=== PATIENT | female | born 1945 | race Caucasian/White ===

== ENCOUNTER 2016-06-04 08:41 | Emergency (ER) | payer MEDICARE ==
[~2016-06-04] VITALS: Ht 172.7 cm; Wt 72.7 kg
[~2016-06-04 08:41] MED LIST: ASPI81TA3 PO; CHOL200047 PO; GLUC-123 PO; LIP40 PO; NAPR220C11 PO; TURM500C7 PO; UBID300C PO
[2016-06-04 08:44] VITALS: BP 111/75; PULSE 52; RESP 18; O2SAT 98
[2016-06-04 09:16] LABS: BASOPHILS % (AUTO) 0.5 % (0-3); EOSINOPHILS % (AUTO) 1.2 % (0-5); MONOCYTES % (AUTO) 8.4 % (4-12); Mean Corpuscular Hemoglobin 30.2 pg (27.0-35.0); Mean Corpuscular Volume 90.4 fL (81-100); NEUTROPHILS % (AUTO) 66.3 % (40-74); Platelet Count 277 bil/L (150-400)
--- NOTE | 2016-06-04 09:19 | ED.REPORT ---
HPI-General Illness Date of Service Jun 04, 2016 ED Provider: Leif Goncalves MD Patient is a 70 year old female on Pradaxa who presents to the ED complaining of palpitations that awoke her at 0600 this morning. Associated symptoms include headache onset last night and SOB. Upon examination, her SOB has resolved. She denies chest pain, lightheadedness, head trauma, or any other symptoms. She recently had a non-bleeding stroke. She currently has a cold. She took 81 mg of Aspirin at 0730 this morning. She has an appointment with Dr. Underwood in a week or two. Nursing Notes Stated Complaint: ARRHYTHMIA,OUT OF BREATH Chief Complaint: Dysrhythmia/Cardiac Nursing Notes Reviewed: Yes Allergies: Coded Allergies: No Known Allergies (Verified , 03/19/05) Scheduled Aspirin Chew (Aspirin Chew) 81 Mg Chew 81 MG PO DAILY Atorvastatin (Lipitor) 40 Mg Tablet 40 MG PO DAILY Cholecalciferol (Vitamin D3) (Vitamin D3) 2,000 Unit Capsule 2,000 UNIT PO DAILY Gluc/Moises-MSM#2/C/D3/Bayron/Born (Mkrcgxoohu-Grzvrynhsel-IWK Tab) 1 Each Tablet 2 TAB PO DAILY Turmeric Root Extract (Turmeric) 500 Mg Capsule 500 MG PO DAILY Ubidecarenone (Co Q-10) 300 Mg Capsule 300 MG PO DAILY Scheduled PRN Naproxen Sodium (Aleve) 220 Mg Capsule 440 MG PO DAILY PRN PRN For Pain General Time Seen by MD: 09:16 Chief Complaint Other (Palpitations ) Hx Obtained From: Patient Arrived By: Walk-in Sudden in Onset?: Yes Onset Occurred: 1 - 4 hours ago Similar Sx Previous: Yes Past Medical History Past Medical History CVA 05/02/16 Reports: Atrial flutter Past Surgical History Bilateral knee surgery Smoking History Never Smoker Social History Alcohol Use: 1-3 per week Other Social History: Local resident Ambulatory Status Independent Review of Systems Full Review of Systems Respiratory: Reports: Shortness of breath Cardiovascular: Reports: Palpitations, Denies: Chest pain Neurologic: Reports: Headache, Denies: Lightheaded Complete sys rev & neg: except as marked. Physical Exam Vital Signs Vital Signs Date Time Temp Pulse Resp B/P Pulse Ox O2 Delivery O2 Flow Rate FiO2 06/04/16 11:13 36.1 52 18 111/75 98 Room Air 06/04/16 11:13 93 10 96/56 98 Room Air 06/04/16 08:44 36.1 52 18 111/75 98 Room Air Initial VS: Reviewed General/Constitutional: Well-developed, Well-nourished Respiratory: No respiratory distress Skin: Warm, Dry Neurologic: Alert, Oriented, Nonfocal Psychiatric: Mood/affect normal, Behavior normal, Normal thought content Head / Eyes: Atraumatic, Normocephalic, PERRL, EOMI, No photophobia Neck: Supple, No JVD Cardiovascular: Heart rate NL, Heart sounds NL, No gallop, No murmurs, No rubs Heart Rate / Rhythm: Positive: Irreg irregular rhythm Interpretation & Diagnostics Lab Results Interpretation Result Diagram: 06/04/16 0900 06/04/16 0900 Test 06/04/16 09:00 White Blood Count 8.2th/mm3 (3.8-10.1) Red Blood Count 4.67mil/mm3 (3.90-5.20) Hemoglobin 14.1g/dL (12.0-15.6) Hematocrit 42.2% (35.0-46.0) Mean Corpuscular Volume 90.4fL (81-100) Mean Corpuscular Hemoglobin 30.2pg (27.0-35.0) Mean Corpuscular Hemoglobin Concent 33.4% (32.0-37.0) Red Cell Distribution Width 13.7% (12.3-15.4) Platelet Count 277bil/L (150-400) Neutrophils (%) (Auto) 66.3% (40-74) Lymphocytes (%) (Auto) 23.5% (14-46) Monocytes (%) (Auto) 8.4% (4-12) Eosinophils (%) (Auto) 1.2% (0-5) Basophils (%) (Auto) 0.5% (0-3) Hold Blue Top Tube Received (Received) Sodium Level 138mEq/L (134-144) Potassium Level 4.2mEq/L (3.5-5.2) Chloride Level 100mEq/L (97-108) Carbon Dioxide Level 25mmol/L (18-29) Blood Urea Nitrogen 18mg/dL (8-27) Creatinine 0.71mg/dL (0.57-1.00) Estimat Glomerular Filtration Rate 117mL/min (>59) Glucose Level 101mg/dL (60-99) Calcium Level 9.8mg/dL (8.5-10.1) Magnesium Level 2.1mg/dL (1.6-2.6) Total Bilirubin 0.3mg/dL (0.0-1.2) Aspartate Amino Transf (AST/SGOT) 19U/L (0-50) Alanine Aminotransferase (ALT/SGPT) 18U/L (0-32) Alkaline Phosphatase 91U/L (25-165) Troponin T < 0.010ug/L (0.0-0.011) Pro-B-Type Natriuretic Peptide 203.1pg/mL (0-301) Total Protein 8.0g/dL (6.4-8.4) Albumin 4.7g/dL (3.4-5.0) ECG Interpretation ECG Interpretation: atrial fibrillation rate 83 probable left ventricular hypertrophy Time: 09:02 Interpreted by: ED physician X-Ray Chest Interpretation Chest Xray Interpretation: IMPRESSION: No acute process. Dictated by: Brandy Freeman M.D. on 06/04/2016 at 9:25 Approved by: Brandy Freeman M.D. on 06/04/2016 at 9:26 View: Portable, 1 view Interpretation / Wet Read by: Interpret - Radiologist Re-Eval/Medical Decision Time of Eval: 10:45 Patient Status: Condition improved Re-Evaluation/Progress Note: Rechecked patient. She reports that her headache has improved. Upon review of medications, she is taking 150 mg Pradaxa ONCE daily and metoprolol XR 25 mg once a day. Discussed plan for discharge with close follow up. Consultation : Referral / Consult Name: Jesse Packer MD Consulted With: Cardiology Call Returned at: 10:11 Note: Discussed patient's case. Agrees that no intervention is required today. Follow up within a few weeks. Counseled Regarding: Diagnosis, Lab results, Need for follow-up, When/why to return to ED Discharge & Departure Primary Impression: Atrial fibrillation Atrial fibrillation type: paroxysmal Qualified Code: I48.0 - Paroxysmal atrial fibrillation Disposition: Home Discharge Condition All VS Reviewed: Yes Condition: Improved Additional Instructions: In the emergency department today we evaluated symptoms of atrial fibrillation noted this morning. An EKG demonstrated atrial fibrillation with good rate control. As long as you have rate control with a heart rate less than 100 and anticoagulation on pradaxa, it is safe to be in atrial fibrillation. Follow-up with Dr. Underwood as planned, within 2 weeks. If pradaxa is labeled for once daily dosing, contact primary care confirmed that is as intended, this medication is not normally dosed twice daily. Continue metoprolol and another previous home medications. Return to emergency department for increasing headache, vomiting, shortness of breath, chest pain episodes of feeling faint, resting heart rate greater than 110. Referrals: Sean Sharma MD (PCP) Scribe Attestation Portions of this note were transcribed by Mayi Mehta. I, Dr. Goncalves personally performed the history, physical exam and medical decision-making; I reviewed and confirmed the accuracy of the information in the transcribed note. Signed by: Mayi Mehta 06/04/16, 2242 copies to: Sean Sharma MD; Norah Underwood MD, Donald L MD Jun 04, 2016 09:19 MAYI MEHTA Jun 04, 2016 09:54
--- NOTE | 2016-06-04 09:27 | DRSVH ---
PROCEDURE: X-RAY CHEST ONE VIEW, PORTABLE ([id number]) INDICATIONS: AFIB TECHNIQUE: One view of the chest was acquired. COMPARISON: None. FINDINGS: Surgical changes and devices: None. Lungs and pleura: No pleural effusions or pneumothorax. Lungs are clear. Mediastinum: Mediastinal contours appear normal. Heart size is normal. Bones and chest wall: No suspicious bony lesions. Overlying soft tissues appear unremarkable. IMPRESSION: No acute process. Dictated by: Brandy Freeman M.D. on 06/04/2016 at 9:25 Approved by: Barndy Freeman M.D. on 06/04/2016 at 9:26
[2016-06-04 09:47] LABS: Magnesium 2.1 mg/dL (1.6-2.6)
[2016-06-04 09:53] LABS: TROPONIN T < 0.010 ug/L (0.0-0.011)
[2016-06-04 11:13] VITALS: BP_SYST 111; BP_SYST 96; BP_DIAS 56; BP_DIAS 75; PULSE 52; PULSE 93; RESP 10; RESP 18; O2SAT 98
== END 2016-06-04 11:10 | disposition home or self-care (01) ==
LOC: SED 08:41
DX: I48.0 Paroxysmal atrial fibrillation (principal); R51 Headache; J00 Acute nasopharyngitis [common cold]; Z86.73 Personal history of transient ischemic attack (TIA), and cerebral infarction without residual deficits; Z79.82 Long term (current) use of aspirin

== ENCOUNTER 2016-06-23 09:05 | Emergency (ER) | payer MEDICARE ==
[2016-06-23 09:08] VITALS: BP 131/93; PULSE 59; RESP 20; O2SAT 99
--- NOTE | 2016-06-23 09:16 | ED.REPORT ---
HPI-Chest Pain 40 and Over Date of Service Jun 23, 2016 ED Provider: Von Rendon MD A 70 year old female with a history of atrial fibrillation and CVA presents to the ED complaining of an episode of atrial fibrillation. The pt had a stroke approximately one month ago as a result of atrial fibrillation and was put on Metoprolol and Pradaxa. She has experienced periodic episodes since this time, but they are always brief. She began experiencing another episode this morning characterized by palpitations, dizziness, headache, and lightheadedness. She also noticed mild shortness of breath, but believes that this was due to anxiety. The episode lasted for approximately one hour. She denies chest pain, vision changes, weakness, numbness, or tingling. The pt was recently ill with Norovirus and just recovered yesterday. Nursing Notes Stated Complaint: HEART ARRHYTHMIA Chief Complaint: Dysrhythmia/Cardiac Nursing Notes Reviewed: Yes Allergies: Coded Allergies: No Known Allergies (Verified , 03/19/05) Scheduled Aspirin Chew (Aspirin Chew) 81 Mg Chew 81 MG PO DAILY Atorvastatin (Lipitor) 40 Mg Tablet 40 MG PO DAILY Cholecalciferol (Vitamin D3) (Vitamin D3) 2,000 Unit Capsule 2,000 UNIT PO DAILY Gluc/Moises-MSM#2/C/D3/Bayron/Born (Bkplqlhccr-Cxnjbakhjwr-URS Tab) 1 Each Tablet 2 TAB PO DAILY Turmeric Root Extract (Turmeric) 500 Mg Capsule 500 MG PO DAILY Ubidecarenone (Co Q-10) 300 Mg Capsule 300 MG PO DAILY Scheduled PRN Naproxen Sodium (Aleve) 220 Mg Capsule 440 MG PO DAILY PRN PRN For Pain General Time Seen by MD: 09:14 Chief Complaint Other (Atrial fibrillation) Hx Obtained From: Patient Arrived By: Walk-in Sudden in Onset?: Yes Onset Occurred: 1 - 4 hours ago Symptom Duration: 46 - 59 minutes Recent Healthcare: Recent doctor visit, Recent hospitalization Similar Sx Previous: Yes Past Medical History Past Medical History CVA 05/02/16 Atrial fibrillation Reports: Atrial flutter Past Surgical History Bilateral knee surgery Smoking History Never Smoker Social History Alcohol Use: 1-3 per week Other Social History: Good social support, Local resident Ambulatory Status Independent Review of Systems Review of Systems Note: atrial fibrillation denies tingling Constitutional: Denies: Fever Respiratory: Reports: Shortness of breath, Denies: Non-productive cough Cardiovascular: Reports: Palpitations, Denies: Chest pain GI: Denies: Abdominal pain Musculoskeletal: Denies: Back pain, Neck pain Skin: Denies Rash Neurologic: Reports: Dizziness, Headache, Lightheaded, Denies: Numbness, Vision change, Weakness Psychiatric: Reports: Anxiety Complete sys rev & neg: except as marked. Physical Exam Initial Vital Signs Vital Signs (First) Date Time Temp Pulse Resp B/P Pulse Ox O2 Delivery O2 Flow Rate FiO2 06/23/16 09:08 36.7 59 20 131/93 99 Room Air Initial VS: Reviewed General/Constitutional: Awake, Alert Respiratory / Chest: Atraumatic, Breath sounds NL, Breath sounds = bilat, No respiratory distress Cardiovascular: Heart sounds NL Heart Rate / Rhythm: Positive: Irreg irregular rhythm, Tachycardia Abdomen: Atraumatic, Soft, Non-tender Neck: Atraumatic, Supple, Full range of motion Back: Atraumatic, Full range of motion Lower Extremity / Pelvis / MS: Atraumatic, Full range of motion Skin: Atraumatic, Color NL, No rash, Warm, Dry Neurologic: Oriented X3, Speech NL, No motor deficits, No sensory deficits Psychiatric: Affect NL, Mood NL Head / Eyes: Atraumatic, Normocephalic, PERRL, EOMI ENT: Atraumatic, Airway patent, Mucous membranes moist Upper Extremity / MS: Atraumatic, Full range of motion Interpretation & Diagnostics Lab Results Interpretation Result Diagram: 06/23/16 0941 06/23/16 0941 Test 06/23/16 09:41 White Blood Count 6.7th/mm3 (3.8-10.1) Red Blood Count 4.41mil/mm3 (3.90-5.20) Hemoglobin 13.2g/dL (12.0-15.6) Hematocrit 39.4% (35.0-46.0) Mean Corpuscular Volume 89.3fL (81-100) Mean Corpuscular Hemoglobin 29.9pg (27.0-35.0) Mean Corpuscular Hemoglobin Concent 33.5% (32.0-37.0) Red Cell Distribution Width 13.8% (12.3-15.4) Platelet Count 267bil/L (150-400) Neutrophils (%) (Auto) 64.9% (40-74) Lymphocytes (%) (Auto) 24.3% (14-46) Monocytes (%) (Auto) 8.5% (4-12) Eosinophils (%) (Auto) 1.6% (0-5) Basophils (%) (Auto) 0.4% (0-3) Prothrombin Time 12.7sec (8.1-12.5) Prothromb Time International Ratio 1.18ratio Sodium Level 139mEq/L (134-144) Potassium Level 3.9mEq/L (3.5-5.2) Chloride Level 103mEq/L (97-108) Carbon Dioxide Level 22mmol/L (18-29) Blood Urea Nitrogen 16mg/dL (8-27) Creatinine 0.63mg/dL (0.57-1.00) Estimat Glomerular Filtration Rate 135mL/min (>59) Glucose Level 88mg/dL (60-99) Calcium Level 9.1mg/dL (8.5-10.1) Magnesium Level 1.8mg/dL (1.6-2.6) Total Bilirubin 0.2mg/dL (0.0-1.2) Aspartate Amino Transf (AST/SGOT) 21U/L (0-50) Alanine Aminotransferase (ALT/SGPT) 19U/L (0-32) Alkaline Phosphatase 64U/L (25-165) Troponin T < 0.010ug/L (0.0-0.011) Total Protein 7.1g/dL (6.4-8.4) Albumin 4.2g/dL (3.4-5.0) ECG Interpretation ECG Interpretation: atrial fibrillation with a rate of 98 Time: 09:19 Interpreted by: ED physician Re-Eval/Medical Decision Med Decision/Clinical Course 70-year-old female history of CVA and atrial fibrillation on pradaxa and metoprolol presenting complaining of episode earlier today of palpitations and dizziness and lightheadedness resolved spontaneously. On arrival patient was found to be in atrial fibrillation with RVR heart rate 110. She had a recent diarrheal illness that resolved yesterday. Patient was given 1 dose of metoprolol 5 mg and her heart rate improved to 70s. Labs are unremarkable. Troponins were negative. She had no episodes of chest pain. Patient was stable for discharge home. 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 However her atrial fibrillation with RVR may be precipitated by her recent diarrheal illness and dehydration. Recommend oral hydration at home. Recommend continuing her current metoprolol dose with return precautions. Discussed with patient and she agrees with plan. Source of Hx: Old records Time of Eval: 11:06 Patient Status: Condition improved Re-Evaluation/Progress Note: Pt rechecked, who is feeling much better. She is informed of lab results, diagnosis, and plan for discharge. The pt understands and agrees with the plan. All questions are addressed at this time. Counseled Regarding: Diagnosis, Lab results, Need for follow-up, When/why to return to ED Discharge & Departure Primary Impression: Atrial fibrillation with RVR Disposition: Home Discharge Condition All VS Reviewed: Yes Condition: Stable Patient Instructions: Atrial Fibrillation (ED) Additional Instructions: You experienced an episode of atrial fibrillation with rapid ventricular rate. This are multiple reasons that this could have occurred. Call Dr. Underwood in the morning and see if you can get an appointment for further evaluation in the next two days. Return to the ED if you develop any new or worsening symptoms. Referrals: Sean Sharma MD (PCP) Norah Underwood MD Attestation Portions of this note were transcribed by Faith Westbrook I, Dr. Rendon personally performed the history, physical exam and medical decision-making; I reviewed and confirmed the accuracy of the information in the transcribed note. Signed by: Nohemi Alcantara, 06/23/16 and 11:11. copies to: Sean Sharma MD; Norah Underwodo MD, Ben M MD Jun 23, 2016 09:16 FAITH WESTBROOK Jun 23, 2016 09:29
[2016-06-23] MEDS ORDERED: 0.9% Sodium Chloride 1,000 ML IV ONE (09:30)
[2016-06-23] MEDS ORDERED: MeTOProlol 1 mg/mL 5 mL Inj IVPUSH PRN (09:30)
[2016-06-23 09:49] LABS: BASOPHILS % (AUTO) 0.4 % (0-3); EOSINOPHILS % (AUTO) 1.6 % (0-5); MONOCYTES % (AUTO) 8.5 % (4-12); Mean Corpuscular Hemoglobin 29.9 pg (27.0-35.0); Mean Corpuscular Volume 89.3 fL (81-100); NEUTROPHILS % (AUTO) 64.9 % (40-74); Platelet Count 267 bil/L (150-400)
[2016-06-23 09:53] VITALS: BP 98/56; PULSE 98; RESP 13; O2SAT 98
[2016-06-23 10:06] LABS: INR 1.18 ratio
[2016-06-23 10:24] LABS: Magnesium 1.8 mg/dL (1.6-2.6)
[2016-06-23 10:28] LABS: TROPONIN T < 0.010 ug/L (0.0-0.011)
[2016-06-23 11:17] VITALS: BP 102/51; PULSE 77; RESP 12; O2SAT 99
[2016-06-23 11:28] VITALS: BP 102/51; PULSE 77; RESP 12; O2SAT 99
== END 2016-06-23 11:16 | disposition home or self-care (01) ==
LOC: SED 09:05
DX: I48.0 Paroxysmal atrial fibrillation (principal); Z86.73 Personal history of transient ischemic attack (TIA), and cerebral infarction without residual deficits; Z79.82 Long term (current) use of aspirin; Z79.01 Long term (current) use of anticoagulants
CPT/HCPCS: 36415; 80053; 83735; 84484; 85025; 85610; 93005; 96361; 96374; 99285; J7030